=== PATIENT | female | born 1945 | race Caucasian/White ===

== ENCOUNTER 2017-03-31 14:22 | Outpatient (CLI) | payer OTHER ==
--- NOTE | 2017-03-31 17:56 | DIAGNOSTIC IMAGING REPORT ---
PROCEDURE: CT ABD/PELVIS WITH CONTRAST CLINICAL INDICATION: RLQ PAIN TECHNIQUE: 100 ml of Isovue 300 were injected intravenously and axial images were obtained of the entire abdomen and pelvis with sagittal and coronal reformations. COMPARISON: None. FINDINGS: ABDOMEN: Lung base are clear. Heart size is normal. Liver, gallbladder, pancreas, spleen, adrenal glands and kidneys are normal. Mild atherosclerosis of the aorta. Stool throughout the large bowel. PELVIS: Appendix not visualized but no evidence of acute appendicitis. Mild sigmoid diverticulosis. 3.5 cm right perirectal mass with prominent popcorn like calcification consistent with a fibroid. Normal adnexa and bladder. No inflammatory changes or free fluid. No suspicious osseous lesions. IMPRESSION: 1. Appendix not visualized but no evidence of acute appendicitis 2. Obstipation 3. 3.5 cm right sided degenerating fibroid 4. Results discussed with Dr. Morin. All CT scans at this facility use dose modulation, iterative reconstruction, and/or weight-based dosing when appropriate to reduce radiation dose to as low as reasonably achievable.
== END 2017-03-31 23:00 ==
LOC: CT SRH 14:22
DX: R10.31 Right lower quadrant pain (principal)